=== PATIENT | male | born 1935 ===

== ENCOUNTER → 2023-07-25 | Outpatient (CLI) | payer MEDICARE ==
[2023-07-25 09:35] LABS: Urine Bacteria None Seen /hpf (None Seen)
[2023-07-25 09:53] LABS: Basophils # (auto) 0.1 10 ^3/uL (0-0.2); Basophils % (auto) 0.8 % (0.0-2.0); Eosinophils # (auto) 0.3 10 ^3/uL (0-0.8); Eosinophils % (auto) 4.1 % (0.0-7.0); Hematocrit 45.6 % (41.0-53.0); Hemoglobin 15.5 g/dL (13.5-17.5); Lymphocytes # (auto) 2.2 10 ^3/uL (0.4-5.4); Lymphocytes % (auto) 27.5 % (10.0-50.0); Mean Corpuscular Hemoglobin 33.2 pg (28.0-32.0); Mean Corpuscular Volume 97.5 fL (80.0-100.0); Monocytes # (auto) 0.7 10 ^3/uL (0-1.3); Monocytes % (auto) 9.1 % (0.0-12.0); Neutrophils # (auto) 4.6 10 ^3/uL (1.6-8.6); Neutrophils % (auto) 58.5 % (37.0-80.0); Nucleated Red Blood Cells % 0.1 %; Red Blood Cells 4.68 10^6/uL (4.5-5.90); Red Cell Distribution Width 15.3 % (11.8-14.3); White Blood Cell 7.9 10^3/uL (4.4-10.8)
[2023-07-25 10:09] LABS: Urine Blood Negative /uL (Negative); Urine Clarity Clear (Clear); Urine Color Light-Yellow (Yellow); Urine Protein, UAD TRACE (Negative); Urine Specific Gravity 1.015 (1.001-1.035); Urine Urobilinogen Normal (Negative); Urine WBC 1 /hpf (0 - 3); Urine pH 6.5 (5.0-9.0)
[2023-07-25 11:08] LABS: Triglycerides 87 mg/dL (< 150)
[2023-07-25 11:09] LABS: LDL Cholesterol 120 mg/dL (< 100)
[2023-07-25 11:10] LABS: Cholesterol 181 mg/dL (< 200); HDL Cholesterol 51 mg/dL (40-59)
[2023-07-25 11:13] LABS: Free T4 (Free Thyroxine) 1.1 ng/dL (0.89-1.76); T3 Total 1.25 ng/mL (0.60-1.81)
[2023-07-25 11:57] LABS: Chloride 105 mmol/L (98-107); Potassium 4.1 mmol/L (3.5-5.1); Sodium 139 mmol/L (136-145)
[2023-07-25 12:02] LABS: Anion Gap 10 (5-15); Carbon Dioxide 24 mmol/L (20-30)
[2023-07-25 12:03] LABS: Calcium 9.9 mg/dL (8.5-10.1)
[2023-07-25 12:05] LABS: Prostate Specific Antigen 5.31 ng/mL (0.0-4.0)
[2023-07-25 12:06] LABS: Alkaline Phosphatase 181 U/L (46-116)
[2023-07-25 12:08] LABS: Alanine Aminotransferase 18 U/L (7-40); BUN/Creatinine Ratio 12.5 (10.0-20.0); Blood Urea Nitrogen 13 mg/dL (9-23); Glucose 82 mg/dL (74-106)
[2023-07-25 12:09] LABS: Albumin 4.4 g/dL (3.2-4.8); Aspartate Aminotransferase 15 U/L (13-40)
[2023-07-25 12:10] LABS: Bilirubin, Total 0.4 mg/dL (0.2-1.0); Total Protein 7.8 g/dL (5.7-8.2)
[2023-07-26 09:06] LABS: PSA Free 1.32 ng/mL; Prostate Specific Antigen 6.4 ng/mL (0.0-4.0)
== END | disposition home or self-care (01) ==
LOC: LAB 09:20
PROVIDERS: ATTEND Nurse Practitioner Acute Care
DX: Z12.5 Encounter for screening for malignant neoplasm of prostate (principal); R09.81 Nasal congestion; E78.5 Hyperlipidemia, unspecified; R33.9 Retention of urine, unspecified; F41.9 Anxiety disorder, unspecified; R42 Dizziness and giddiness
CPT/HCPCS: 36415; 80053; 80061; 81001; 82306; 83036; 84153; 84154; 84439; 84443; 84480; 85025

== ENCOUNTER 2024-03-27 17:38 | Emergency (ER) | payer MEDICARE, MEDICAID ==
[~2024-03-27] VITALS: Ht 170.2 cm; Wt 57.3 kg
[2024-03-27 18:20] VITALS: BP 145/92; PULSE 74; RESP 18; O2SAT 97
[2024-03-27] MEDS: cloNIDine HCL 0.1 MG TAB PO ONE (18:20)
[2024-03-27] MEDS: HYDROcodone-ACET 5/325MG TAB PO ONE ×2 (18:21→20:37)
[2024-03-27] MEDS ORDERED: HYDR-4902 PO (20:22)
--- NOTE | 2024-03-27 20:23 | ED.PDOC ---
Eye-HPI HPI Comments Patient is a very pleasant 88-year-old male who arrives the ED today for e valuation of left eye pain concerns that began earlier today and continued throughout. 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 Patient did not contact his grinder machine knife setter prior to arrival. Patient denies any recent traumatic events. Patient's blood pressure was elevated at arrival. Chief Complaint: Eye Problem Time Seen by MD: 17:49 Reviewed Notes: Nurses Notes Allergies: Coded Allergies: NO KNOWN ALLERGIES (Unverified , 03/27/24) Information Source: Patient Mode of Arrival: Wheelchair Timing: Hours Duration: Since onset Prehospital treatment: None Quality: Pain Eye Location: Left Conjunctiva: Normal Onset: Spontaneous History of: Glaucoma Last Tetanus: UTD Associated signs and symptoms: None Past Medical History PAST MEDICAL HISTORY: Denies Past Medical History (Other): Left-sided macular degeneration and open-angle glaucoma. Patient is blind in this eye. Surgical History: Denies all surgeries Family History Family History: Reviewed,noncontributory to illness, No family hx of Cancer, No family hx of DM, No family hx of Heart sánchez, No family hx of HTN, No family hx ofKidney sánchez, No family hx of Liver sánchez, No family hx of Lung sánchez, No family hx of Stroke Social History Smoker: Non-Smoker Alcohol: Denies ETOH Use Drugs: Denies Drug Use Lives In: Home Constitutional: denies: chills, diaphoresis, fatigue, fever, malaise, sweats, weakness, others EENTM: reports: eye pain; denies: blurred vision, double vision, ear bleeding, ear discharge, ear drainage, ear pain, ear ringing, eye redness, hearing loss, mouth pain, mouth swelling, nasal discharge, nose bleeding, nose congestion, nose pain, photophobia, tearing, throat pain, throat swelling, voice changes, others Respiratory: denies: cough, hemoptysis, orthopnea, SOB at rest, shortness of breath, SOB with excertion, stridor, wheezing, others Cardiovascular: denies: chest pain, dizzy spells, diaphoresis, Dyspnea on exertion, edema, irregular heart beat, left arm pain, lightheadedness, palpitations, PND, syncope, others Gastrointestinal: denies: abdomen distended, abdominal pain, blood streaked bowels, constipated, diarrhea, dysphagia, difficulty swallowing, hematemesis, melena, nausea, poor appetite, poor fluid intake, rectal bleeding, rectal pain, vomiting, others Genitourinary: denies: burning, dysuria, flank pain, frequency, hematuria, incontinence, penile discharge, penile sore, pain, testicle pain, testicle swelling, urgency, others Neurological: denies: dizziness, fainting, headache, left sided numbness, left sided weakness, numbness, paresthesia, pre-existing deficit, right sided numbness, right sided weakness, seizure, speech problems, tingling, tremors, weakness, others Musculoskeletal: denies: back pain, gout, joint pain, joint swelling, muscle pain, muscle stiffness, neck pain, others Integumetry: denies: bruises, change in color, change in hair/nails, dryness, laceration, lesions, lumps, rash, wounds, others Allergic/Immunocompromised: denies: Difficulty Healing, Frequent Infections, Hives, Itching, others Hematologic/Lymphatic: denies: anemia, blood clots, easy bleeding, easy bruising, swollen glands, others Endocrine: denies: excessive hunger, excessive sweating, excessive thirst, excessive urination, flushing, intolerance to cold, intolerance to heat, unexplained weight gain, unexplained weight loss, others Psychiatric: denies: anxiety, bipolar disorder, depression, hopeless, panic disorder, schizophrenia, sleepless, suicidal, others Physical Exam General Appearance: Moderate Distress ([id number] distress due to left eye pain.), Normal HEENT: Pharynx Normal, TMs Normal, Other (Patient complains of left eye pain. Relatively unremarkable evaluation. No hyphema noted. IOP was 20.) Neck: Full Range of Motion, Non-Tender, Normal, Normal Inspection Respiratory: Chest Non-Tender, Lungs Clear, No Accessory Muscle Use, No Respiratory Distress, Normal Breath Sounds Cardiovascular: No Edema, No JVD, No Murmur, No Gallop, Normal Peripheral Pulses, Regular Rate/Rhythm Breast Exam: Deferred Gastrointestinal: No Organomegaly, Non Tender, No Pulsatile Mass, Normal Bowel Sounds, Soft Genitalia: Deferred Pelvic: Deferred Rectal: Deferred Extremities: No calf tenderness, Normal capillary refill, Normal inspection, Normal range of motion, Non-tender, No pedal edema Neurologic: Alert, kosher dietary service manager II-XII nml as Tested, No Motor Deficits, Normal Affect, Normal Mood, No Sensory Deficits Cerebellar Function: Normal Reflexes: Normal Skin: Dry, Normal Color, Warm Lymphatic: No Adenopathy Was a procedure done? Was a procedure done?: No EENT DIFF Eye: Other (Open-angle glaucoma, closed angle glaucoma, macular degeneration) X-Ray, Labs, Meds, VS Vital Signs Date Time Temp Pulse Resp B/P (MAP) Pulse Ox O2 Delivery O2 Flow Rate FiO2 03/27/24 18:30 Room Air* 0 21 03/27/24 18:20 74 18 145/92 (109) 97 03/27/24 18:20 145/92 03/27/24 17:50 98.5 92 16 156/96 (116) 93 Current Medications Medications (Trade) Dose Ordered Sig/Parker Route Start Time Stop Time Status Last Admin Acetaminophen/ Hydrocodone Bitart ([place] 5/325MG Tab) 1 tab ONCE ONCE PO 03/27/24 18:00 03/27/24 18:01 DC 03/27/24 18:21 Clonidine HCl (Catapres Tablet) 0.1 mg ONCE ONCE PO 03/27/24 18:00 03/27/24 18:01 DC 03/27/24 18:20 X-Ray, Labs, Meds, VS Comment I contacted our grinder machine knife setter Dr. Nair and discussed the patient presentation as well as findings. He advised that the patient does not need emergent intervention and can follow up with his specific eye Center on Friday for continued evaluation. Advised him of the patient home with pain medication. Time of 1ST Reevaluation: 20:20 Reevaluation 1ST: Improved Consultation: PCP, Other (Ophthalmology) Patient Education/Counseling: Diagnosis, Treatment Family Education/Counseling: Diagnosis, Treatment Departure 1 Departure Time of Disposition: 20:20 Impression: Primary Impression: Left eye pain Disposition: HOME / SELF CARE / HOMELESS Condition: Stable Additional Instructions: Advised pain medication as needed and additionally, patient needs to follow up with his grinder machine knife setter on Friday for continued evaluation and management. Advised patient that he should contact the [facility] [place] where he was seen prior. e-Prescriptions Hydrocodone-Acetaminophen (Hydrocodone Bitartrate/AC 5-325 mg) 1 Tab Tab 1 TAB PO Q6HP PRN, #10 TAB Prov: YI SCHULTZ PAC 03/27/24 Discharged With: Self, Friend Critical Care Note Critical Care Time?: No Stability Stability form required: No Heart Score Heart Score: Heart Score Response (Comments) Value History N/A 0 EKG N/A 0 Age N/A 0 Risk Factors N/A 0 Troponin N/A 0 Total 0 YI SCHULTZ PAC Mar 27, 2024 20:23
[2024-03-28] MEDS ORDERED: HYDROcodone-ACET 5/325MG TAB PO ONE (03:15)
== END 2024-03-27 20:44 | disposition home or self-care (01) ==
LOC: ER 17:38
DX: H57.12 Ocular pain, left eye (principal)